=== PATIENT | female | born 1960 | race Caucasian/White ===

== ENCOUNTER 2023-11-04 09:10 | Day surgery (SDC) | payer OTHER ==
[2023-11-01 10:16] LABS: BASOPHILS % (AUTO) 0.7 % (0-1); EOSINOPHILS # (AUTO) 0.1 X10'3 (0-0.9); EOSINOPHILS % (AUTO) 1.7 % (0-6); LYMPHOCYTES # (AUTO) 1.1 X10'3 (1.1-4.8); LYMPHOCYTES % (AUTO) 20.9 % (21-51); MEAN CORPUSCULAR HEMOGLOBIN 29.6 PG (27.0-31.0); MEAN CORPUSCULAR HGB CONC 33.3 g/dL (33.0-36.5); MEAN CORPUSCULAR VOLUME 88.7 FL (78-98); MEAN PLATELET VOLUME 8.7 FL (7.4-10.4); MONOCYTES # (AUTO) 0.4 X10'3 (0-0.9); MONOCYTES % (AUTO) 6.9 % (2-12); NEUTROPHILS # (AUTO) 3.6 X10'3 (1.8-7.7); NEUTROPHILS % (AUTO) 69.8 % (42-75); PRE OP HEMOGLOBIN 14.7 g/dL (12.0-16.0); PRE OP PLATELET COUNT 234 X10'3 (140-440); PRE OP WHITE BLOOD COUNT 5.2 10'3 (4.8-10.8); RED BLOOD COUNT 4.96 X10'6 (4.20-5.60); RED CELL DISTRIBUTION WIDTH 14.1 % (11.5-14.5)
[2023-11-01 11:40] LABS: ALBUMIN 4.2 G/DL (3.4-5.0); ALBUMIN/GLOBULIN RATIO 1.2 (1.1-1.5); ALKALINE PHOSPHATASE 75 IU/L (46-116); BLOOD UREA NITROGEN 17 MG/DL (7-18); BUN/CREATININE RATIO 17.9 (10.0-20.0); CHLORIDE 106 MMOL/L (99-107); CREATININE 0.95 MG/DL (0.40-0.90); PRE OP ALT 30 U/L (30-65); PRE OP ANION GAP 9 (8-16); PRE OP AST 18 U/L (10-37); PRE OP BILIRUB, TOTAL 0.8 MG/DL (0.0-1.0); PRE OP GLUCOSE 88 MG/DL (70-104); PRE OP POTASSIUM 4.3 MMOL/L (3.4-5.1); PRE OP SODIUM 141 MMOL/L (135-145); TOTAL CARBON DIOXIDE 25.6 MMOL/L (24-32); TOTAL PROTEIN 7.7 G/DL (6.4-8.2); eGFR 59 ML/MIN
[2023-11-04] VITALS (15 sets, daily range): BP systolic 103–141; BP diastolic 49–73; PULSE 59–87; RESP 8–21; TEMP 98.8; O2SAT 92–100
[~2023-11-04] VITALS: Ht 152.4 cm; Wt 77.0 kg
[2023-11-04] MEDS: ceFOXitin 2GM-NS 100mL ADDvant 100 ML IV ONE (05:30)
[~2023-11-04 09:10] MED LIST: ACYCLOVIR PO; BUPR-317 PO
[2023-11-04] MEDS: famotidine 20mg tablet PO ONE (10:07)
[2023-11-04] MEDS: ringers solution, lacted 1,000 ML IV SCH (10:08)
[2023-11-04] MEDS ORDERED: BUPIVAcaine 2.5mg/ml inj 50ml vial (contains preservative) ONE (12:03)
[2023-11-04] MEDS ORDERED: fentaNYL/PF 50MCG/1 ML 2ML syringe ONE (12:22)
[2023-11-04] MEDS ORDERED: propofol inj 20 ML IV ONE (12:22)
[2023-11-04] MEDS ORDERED: midazolam 1 mg/ML 2ml injection ONE (12:22)
[2023-11-04] MEDS ORDERED: rocuronium 10mg/ml inj IV ONE (12:22)
[2023-11-04] MEDS ORDERED: sevoflurane 250ml liquid IH ONE (12:31)
[2023-11-04] MEDS: BUPIVAcaine 2.5mg/ml inj 50ml vial (contains preservative) IJ ONE ×2 (13:02→13:04)
[2023-11-04] MEDS ORDERED: dexamethasone sod phosphate 4mg/ml inj. ONE (13:05)
[2023-11-04] MEDS ORDERED: ondansetron/PF 4mg/2ml inj ONE (13:05)
[2023-11-04] MEDS ORDERED: acetaminophen 1,000mg/100ml IV 100 ML IV ONE (13:22)
[2023-11-04] MEDS ORDERED: neostigmine methylsulfate 1 MG/ML 10ml vial ONE (13:40)
[2023-11-04] MEDS ORDERED: glycopyrrolate 0.2mg/ml inj ONE (13:40)
[2023-11-04] MEDS ORDERED: morphine 2 MG/ML inj. syringe IV PRN (14:05)
[2023-11-04] MEDS ORDERED: ringers solution, lacted 1,000 ML IV SCH (14:05)
[2023-11-04] MEDS ORDERED: ondansetron/PF 4mg/2ml inj IV PRN (14:05)
[2023-11-04] MEDS ORDERED: proCHLORperazine 10 MG/2 ml inj IV PRN (14:05)
[2023-11-04] MEDS ORDERED: meperidine/PF 25mg/ml syringe IV PRN ×2 (14:05)
[2023-11-04] MEDS ORDERED: morphine 4 MG/ML inj SYRINge IV PRN (14:05)
[2023-11-04] MEDS: meperidine/PF 25mg/ml syringe IV PRN (14:16)
== END 2023-11-04 15:52 | disposition home or self-care (01) ==
LOC: PAS 09:10
PROVIDERS: ATTEND Obstetrics & Gynecology Obstetrics
DX: N83.291 Other ovarian cyst, right side (principal); I20.9 Angina pectoris, unspecified; Z79.899 Other long term (current) drug therapy; Z79.2 Long term (current) use of antibiotics; Z98.890 Other specified postprocedural states
CPT/HCPCS: 36415; 58558; 58661; 80053; 82948; 85025; 86870; 86880; 86885; 86900; 86901; 86922; J0131; J0694; J1100; J2175; J2250; J2405; J2704; J2710; J3010; J3490; J7030; J7120; Z7506; Z7508; Z7512; A4355; A4618; A6258; A7000